=== PATIENT | female | born 1935 | race Caucasian/White ===

== ENCOUNTER → 2017-09-06 | Outpatient (CLI) | payer MEDICARE, MEDICAID | END | disposition home or self-care (01) | LOC: CFH 14:15 | PROVIDERS: ATTEND Internal Medicine Cardiovascular Disease | DX: I08.3 Combined rheumatic disorders of mitral, aortic and tricuspid valves (principal); Z87.891 Personal history of nicotine dependence | CPT/HCPCS: 93306 ==

== ENCOUNTER 2017-10-01 05:47 | Inpatient (IN) | payer MEDICARE, MEDICAID ==
[~2017-10-01] VITALS: Ht 165.1 cm; Wt 52.6 kg
[2017-10-01] MEDS ORDERED: FAMOTIDINE 20 MG/2 ML ONE (06:25)
[2017-10-01] MEDS ORDERED: ONDANSETRON 2MG/ML, 2ML ONE (06:26)
[2017-10-01] MEDS ORDERED: morphine SULFATE 10 MG/ML, 1ML ONE (06:26)
[2017-10-01] MEDS ORDERED: SODIUM CHLORIDE 0.9% 1,000ML IVBOLUS ONE (06:30)
[2017-10-01] MEDS ORDERED: SODIUM CHLORIDE FLUSH 10ML SYR IVF ONE (06:30)
[2017-10-01] MEDS ORDERED: ONDANSETRON 2MG/ML, 2ML IVPush ONE (06:30)
[2017-10-01] MEDS: MORPHINE SULFATE 4 MG/ML, 1ML IVPush PRN ×2 (06:37→09:30)
[2017-10-01 06:42] LABS: HEMATOCRIT 37.8 % (34.6-47.8); HEMOGLOBIN 12.9 g/dL (11.7-16.4); WHITE BLOOD COUNT 11.3 x10^3/uL (3.4-10)
[2017-10-01 06:55] LABS: ASPARTATE AMINO TRANSFERASE 20 U/L (15-37); BLOOD UREA NITROGEN 12 mg/dL (7-18)
[2017-10-01] MEDS ORDERED: OMNIPAQUE 350 MG/ML, 100ML BOTTLE ONE (07:30)
[2017-10-01] MEDS: SODIUM CHLORIDE 0.9% 1,000 ML IV SCH (12:46)
[2017-10-01] MEDS ORDERED: hydrALAzine 20 MG/ML, 1ML IVPush PRN (13:00)
[2017-10-01] MEDS ORDERED: ACETAMINOPHEN 325 MG TABLET PO PRN (13:00)
[2017-10-01] MEDS ORDERED: ENALAPRILAT 1.25 MG/ML, 2ML IVPush PRN (13:00)
[2017-10-01] MEDS: FLUTICASONE/VILANTEROL 100-25MCG/INH INH SCH (13:00)
[2017-10-01] MEDS ORDERED: LABETALOL 5MG/ML, 20ML IVPush PRN (13:00)
[2017-10-01] MEDS ORDERED: morphine SULFATE 10 MG/ML, 1ML IVPush PRN (13:00)
[2017-10-01] MEDS ORDERED: BISACODYL 10 MG SUPP PR PRN (13:00)
[2017-10-01] MEDS: CEFTRIAXONE PMX 1GM/50ML 50 ML IV SCH (13:00)
[2017-10-01] MEDS ORDERED: ONDANSETRON 2MG/ML, 2ML IVPush PRN (13:00)
[2017-10-01] MEDS ORDERED: POLYETHYLENE GLYCOL 17 GM PACKET PO PRN (13:00)
[2017-10-01] MEDS ORDERED: CEFTRIAXONE PMX 1GM/50ML 50 ML ONE (13:56)
[2017-10-01] MEDS ORDERED: HEPARIN 5,000 UNITS/ML, 1ML ONE (14:30)
[2017-10-01] MEDS: GABAPENTIN 300 MG CAPSULE PO SCH ×3 (14:35→21:00)
[2017-10-01] MEDS: HEPARIN 5,000 UNITS/ML, 1ML SQ SCH ×2 (14:35→21:00)
[2017-10-01] MEDS: SENNA/DOCUSATE TABLET PO SCH (14:36)
[2017-10-01] MEDS: METHOCARBAMOL 500 MG TABLET PO SCH ×3 (15:24→21:00)
[2017-10-01 16:06] VITALS: BP 102/59
[2017-10-01] MEDS: RIVAROXABAN 15 MG TABLET PO SCH (17:33)
[2017-10-01 19:25] VITALS: BP 106/64
[2017-10-01] MEDS ORDERED: DIPHENHYDRAMINE 25 MG CAPSULE PO ONE (22:00)
[2017-10-02 01:38] VITALS: BP 102/60
[2017-10-02 01:48] VITALS: BP 132/74
[2017-10-02] MEDS: HEPARIN 5,000 UNITS/ML, 1ML SQ SCH ×4 (05:00→22:12)
[2017-10-02 05:50] LABS: HEMATOCRIT 34.3 % (34.6-47.8); HEMOGLOBIN 11.6 g/dL (11.7-16.4); WHITE BLOOD COUNT 10.2 x10^3/uL (3.4-10)
[2017-10-02 06:12] LABS: ASPARTATE AMINO TRANSFERASE 17 U/L (15-37); BLOOD UREA NITROGEN 10 mg/dL (7-18)
[2017-10-02] MEDS: ASPIRIN 81 MG TABLET EC PO SCH (06:24)
[2017-10-02] MEDS: SODIUM CHLORIDE 0.9% 1,000 ML IV SCH (06:24)
[2017-10-02 07:40] VITALS: BP 92/50
[2017-10-02] MEDS: METHOCARBAMOL 500 MG TABLET PO SCH ×3 (08:51→22:11)
[2017-10-02] MEDS: GABAPENTIN 300 MG CAPSULE PO SCH ×3 (08:51→22:11)
[2017-10-02] MEDS: SENNA/DOCUSATE TABLET PO SCH (08:51)
[2017-10-02] MEDS: PANTOPROZOLE 40MG TABLET PO SCH (08:51)
[2017-10-02] MEDS: FLUTICASONE/VILANTEROL 100-25MCG/INH INH SCH (08:51)
[2017-10-02] MEDS: CEFTRIAXONE PMX 1GM/50ML 50 ML IV SCH (13:03)
[2017-10-02 15:45] VITALS: BP 104/55
[2017-10-02] MEDS: RIVAROXABAN 15 MG TABLET PO SCH (16:34)
[2017-10-02 19:20] VITALS: BP 117/49
[2017-10-03 01:10] VITALS: BP 110/54
[2017-10-03] MEDS: ASPIRIN 81 MG TABLET EC PO SCH (06:16)
[2017-10-03] MEDS: HEPARIN 5,000 UNITS/ML, 1ML SQ SCH ×3 (06:17→21:03)
[2017-10-03 08:05] VITALS: BP 124/75
[2017-10-03] MEDS: METHOCARBAMOL 500 MG TABLET PO SCH ×3 (10:41→21:02)
[2017-10-03] MEDS: FLUTICASONE/VILANTEROL 100-25MCG/INH INH SCH (10:42)
[2017-10-03] MEDS: PANTOPROZOLE 40MG TABLET PO SCH (10:42)
[2017-10-03] MEDS: GABAPENTIN 300 MG CAPSULE PO SCH ×3 (10:42→21:02)
[2017-10-03] MEDS: SENNA/DOCUSATE TABLET PO SCH (10:43)
[2017-10-03] MEDS: CEFTRIAXONE PMX 1GM/50ML 50 ML IV SCH (13:54)
[2017-10-03 14:49] VITALS: BP 92/50
[2017-10-03] MEDS: RIVAROXABAN 15 MG TABLET PO SCH (18:40)
[2017-10-03 19:30] VITALS: BP 116/57
[2017-10-04 01:59] VITALS: BP 110/54
[2017-10-04] MEDS: HEPARIN 5,000 UNITS/ML, 1ML SQ SCH ×3 (05:24→20:31)
[2017-10-04] MEDS: ASPIRIN 81 MG TABLET EC PO SCH (05:24)
[2017-10-04 07:51] VITALS: BP 110/75
[2017-10-04] MEDS: PANTOPROZOLE 40MG TABLET PO SCH (08:02)
[2017-10-04] MEDS: FLUTICASONE/VILANTEROL 100-25MCG/INH INH SCH (09:06)
[2017-10-04] MEDS: GABAPENTIN 300 MG CAPSULE PO SCH ×3 (09:06→20:35)
[2017-10-04] MEDS: SENNA/DOCUSATE TABLET PO SCH (09:06)
[2017-10-04] MEDS: METHOCARBAMOL 500 MG TABLET PO SCH ×3 (09:06→20:35)
[2017-10-04 13:46] VITALS: BP 106/68
[2017-10-04] MEDS: CEFTRIAXONE PMX 1GM/50ML 50 ML IV SCH (15:50)
[2017-10-04] MEDS: RIVAROXABAN 15 MG TABLET PO SCH (17:57)
[2017-10-04 22:30] VITALS: BP 139/79
[2017-10-05 00:38] VITALS: BP 146/68
[2017-10-05] MEDS: ASPIRIN 81 MG TABLET EC PO SCH (05:13)
[2017-10-05] MEDS: HEPARIN 5,000 UNITS/ML, 1ML SQ SCH ×2 (05:13→13:00)
[2017-10-05 07:42] VITALS: BP 117/74
[2017-10-05] MEDS: FLUTICASONE/VILANTEROL 100-25MCG/INH INH SCH (08:43)
[2017-10-05] MEDS: GABAPENTIN 300 MG CAPSULE PO SCH ×2 (08:43→17:24)
[2017-10-05] MEDS: METHOCARBAMOL 500 MG TABLET PO SCH ×2 (08:44→17:24)
[2017-10-05] MEDS: PANTOPROZOLE 40MG TABLET PO SCH (08:44)
[2017-10-05] MEDS: SENNA/DOCUSATE TABLET PO SCH (08:44)
[2017-10-05] MEDS: CEFTRIAXONE PMX 1GM/50ML 50 ML IV SCH (13:00)
[2017-10-05] MEDS ORDERED: ACET325T14 PO (14:51)
[2017-10-05] MEDS ORDERED: ASPI-621 PO (14:51)
[2017-10-05] MEDS ORDERED: METH500T7 PO (14:51)
[2017-10-05] MEDS ORDERED: PANT40TA5 PO (14:51)
[2017-10-05] MEDS ORDERED: GABA300C10 PO (14:51)
[2017-10-05] MEDS ORDERED: FLUT1AER INH (14:51)
[2017-10-05] MEDS ORDERED: TRAM50TA2 PO (14:51)
[2017-10-05] MEDS ORDERED: RIVA15TA PO (14:51)
[2017-10-05] MEDS ORDERED: SENN1TAB7 PO (14:51)
[2017-10-05] MEDS ORDERED: HYDR-3241 PO (14:51)
[2017-10-05] MEDS ORDERED: BISA10SU65 PR (14:51)
[2017-10-05] MEDS ORDERED: POLY17PO5 PO (14:51)
[2017-10-05] MEDS ORDERED: FLU VACC QS2017-18 (36MOS+) UP/PF 0.5 ML IM-VACC ONE (16:30)
[2017-10-05] MEDS ORDERED: PNEUMOCOCCAL 23 VACCINE IM-VACC ONE (16:30)
[2017-10-05] MEDS: RIVAROXABAN 15 MG TABLET PO SCH (17:24)
== END 2017-10-05 17:52 | DRG 551 ==
LOC: ED 07:41 → EDIP 08:21 → 3NE 15:42
PROVIDERS: ADMIT Internal Medicine; ATTEND Internal Medicine
DX: M50.10 Cervical disc disorder with radiculopathy, unspecified cervical region (principal); E43 Unspecified severe protein-calorie malnutrition; J44.9 Chronic obstructive pulmonary disease, unspecified; I34.0 Nonrheumatic mitral (valve) insufficiency; N39.0 Urinary tract infection, site not specified; Z68.1 Body mass index [BMI] 19.9 or less, adult; R53.81 Other malaise; E78.5 Hyperlipidemia, unspecified; K21.9 Gastro-esophageal reflux disease without esophagitis; M47.812 Spondylosis without myelopathy or radiculopathy, cervical region; I10 Essential (primary) hypertension; I70.0 Atherosclerosis of aorta; K59.00 Constipation, unspecified; M54.5 Low back pain; M19.90 Unspecified osteoarthritis, unspecified site; M48.02 Spinal stenosis, cervical region; N81.10 Cystocele, unspecified; R32 Unspecified urinary incontinence; Z79.01 Long term (current) use of anticoagulants; Z87.891 Personal history of nicotine dependence; Z23 Encounter for immunization
CPT/HCPCS: 36415; 71010; 72126; 74020; 80053; 80061; 81001; 82306; 82607; 83036; 83605; 83735; 84439; 84443; 85025; 87040; 87086; 90686; 90732; 96361; 96374; 96375; 96376; J0696; J1644; J2405; Q9967; J7030; Q0163

== ENCOUNTER → 2018-06-11 | Outpatient (CLI) | payer MEDICARE ==
[~2018-06-11] MED LIST: ACET325T14 PO; ASPI-621 PO; BISA10SU65 PR; FLUT1AER INH; GABA300C10 PO; HYDR-3241 PO; METH500T7 PO; PANT40TA5 PO; POLY17PO5 PO; RIVA15TA PO; SENN1TAB7 PO; TRAM50TA2 PO
== END | disposition home or self-care (01) ==
LOC: CFH 09:44
PROVIDERS: ATTEND Nurse Practitioner Family
DX: M81.0 Age-related osteoporosis without current pathological fracture (principal); Z86.718 Personal history of other venous thrombosis and embolism
CPT/HCPCS: 77080

== ENCOUNTER → 2018-12-14 | Outpatient (CLI) | payer MEDICARE ==
[~2018-12-14] MED LIST changes: -ASPI-621 PO; +ASPI81TA45 PO; -SENN1TAB7 PO; +SENN1TAB8 PO
== END | disposition home or self-care (01) ==
LOC: CFH 10:58
PROVIDERS: ATTEND Internal Medicine Gastroenterology
DX: R63.4 Abnormal weight loss (principal); K22.70 Barrett's esophagus without dysplasia; R11.0 Nausea
CPT/HCPCS: 84443

== ENCOUNTER 2019-02-16 18:02 | Inpatient (IN) | payer MEDICARE ==
[~2019-02-16] VITALS: Ht 165.1 cm; Wt 60.0 kg
[~2019-02-16 18:02] MED LIST changes: +SENN-177 PO; -SENN1TAB8 PO
--- NOTE | 2019-02-16 18:12 | NUR ---
EKG IN TRIAGE.
--- NOTE | 2019-02-16 18:20 | NUR ---
DR CORRAL TO TRIAGE TO ASSESS PT.
[2019-02-16] MEDS ORDERED: SODIUM CHLORIDE 0.9% 1,000ML IVBOLUS ONE (18:30)
--- NOTE | 2019-02-16 18:44 | NUR ---
report received from IAN Varela pt in [place] at this time.
--- NOTE | 2019-02-16 18:50 | NUR ---
pt presents to ED with c/o dizziness and slurred speech, onset today, time unclear. pt is a&ox4, face symmetrical, pupils equal, round and reactive. all extremity strength 5/5, gait steady, equal grasp bilaterally, no drift. symptomology discussed with LINDA Mcgregor, per LINDA, pt is not a code neuro as she does not have any deficits and has unclear symptom onset time.
[2019-02-16 18:55] LABS: BASOPHILS # (AUTO) 0.02 x10^3/uL (0-0.1); BASOPHILS % (AUTO) 0 % (0-1); EOSINOPHILS # (AUTO) 0.06 x10^3/uL (0-0.4); EOSINOPHILS % (AUTO) 1 % (1-7); LYMPHOCYTES # (AUTO) 2.08 x10^3/uL (1-3.4); LYMPHOCYTES % (AUTO) 27 % (22-44); MD NO; MEAN CORPUSCULAR HEMOGLOBIN 33.4 pg (27.0-34.8); MEAN CORPUSCULAR VOLUME 98.2 fL (80-100); MEAN PLATELET VOLUME 8.5 fL (7.4-10.4); MONOCYTES # (AUTO) 0.71 x10^3/uL (0.2-0.8); MONOCYTES % (AUTO) 9 % (2-9); NEUTROPHILS # (AUTO) 4.87 x10^3/uL (1.8-6.8); NEUTROPHILS % (AUTO) 63 % (42-75); PLATELET COUNT 162 x10^3/uL (130-400); RED BLOOD COUNT 4.75 x10^6/uL (3.82-5.3); RED CELL DISTRIBUTION WIDTH 12.2 % (9.6-15.2)
[2019-02-16 19:05] LABS: INTERNATIONAL NORMALIZED RATIO 1.1 (0.93-1.1); PROTHROMBIN TIME 11.5 Seconds (9.6-11.5)
[2019-02-16 19:07] LABS: ALANINE AMINOTRANSFERASE 49 U/L (12-78); ALBUMIN 3.9 g/dL (3.4-5.0); ANION GAP 6 mmol/L (5-15); CALCIUM 9.5 mg/dL (8.5-10.1); CHLORIDE 108 mmol/L (98-107); CREATININE 0.72 mg/dL (0.55-1.02)
[2019-02-16 19:11] LABS: ALKALINE PHOSPHATASE 116 U/L (45-117); BILIRUBIN,TOTAL 0.8 mg/dL (0.2-1.0); TROPONIN I < 0.015 ng/mL (0.000-0.045)
--- NOTE | 2019-02-16 19:11 | NUR ---
pt up to bathroom to void, gait steady. pt back to bed, all monitors in place. 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 urine sent to lab.
[2019-02-16 19:14] LABS: MICROSCOPIC NOT IND
[2019-02-16 19:17] LABS: CULTURE INDICATED? NO
--- NOTE | 2019-02-16 19:25 | NUR ---
EDMD Balbir at bedside to update pt and family with results and POC.
[2019-02-16] MEDS ORDERED: HYDR-3652 PO (19:41)
[2019-02-16] MEDS ORDERED: MULT-516 PO (19:41)
[2019-02-16] MEDS ORDERED: OMEP-110 PO (19:41)
[2019-02-16] MEDS ORDERED: TIZA4CAP PO (19:41)
[2019-02-16] MEDS ORDERED: CICL34.6 TP (19:41)
[2019-02-16] MEDS ORDERED: ATOR-2 PO (19:41)
[2019-02-16] MEDS ORDERED: ZOLP-413 PO (19:41)
[2019-02-16] MEDS ORDERED: metoprolol PO (19:41)
[2019-02-16] MEDS ORDERED: calcium + D PO (19:41)
--- NOTE | 2019-02-16 20:24 | NUR ---
report given to IAN Montoya, pt awaiting transport to [facility]
[2019-02-16] MEDS ORDERED: ASPIRIN 81 MG TABLET CHEW ONE (20:25)
[2019-02-16] MEDS ORDERED: ACETAMINOPHEN 650 MG/20.3 ML UDC PO PRN (20:30)
[2019-02-16] MEDS ORDERED: ONDANSETRON 4 MG TABLET PO PRN (20:30)
[2019-02-16] MEDS ORDERED: POLYETHYLENE GLYCOL 17 GM PACKET PO PRN (20:30)
[2019-02-16] MEDS ORDERED: BISACODYL 10 MG SUPP PR PRN (20:30)
[2019-02-16] MEDS ORDERED: ASPIRIN 81 MG TABLET CHEW PO ONE (20:30)
[2019-02-16] MEDS ORDERED: TIZANIDINE 4MG TABLET PO PRN (20:30)
[2019-02-16] MEDS ORDERED: DOCUSATE 100 MG CAPSULE PO PRN (20:30)
[2019-02-16] MEDS ORDERED: ENALAPRILAT 1.25 MG/ML, 2ML IV PRN (20:30)
--- NOTE | 2019-02-16 20:30 | NUR ---
PT A&OX4, NEURO INTACT. NO DRIFT. 5/5 STRENGTH TO ALL EXTREMITIES. FACE SYMMETRICAL. EQUAL GRASP BILATERALLY. PUPILS EQUAL ROUND AND REACTIVE. 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 VSS.
--- NOTE | 2019-02-16 20:46 | NUR ---
PT CONCERNED SHE HAS NOT HAD HER DOSE OF METOPROLOL AND XARALTO TODAY. PT UNABLE TO RECALL IF SHE TAKES SHORT ACTING OR LONG ACTING METOPROLOL. TRIP RAMIREZ NOTIFIED. TRIP ORDERED ONE TIME DOSE METOPROLOL TARTRATE 50 MG PO AND XARALTO 15 MG PO TO BE GIVEN THIS PM. TRIP AT BEDSIDE DISCUSSING PLAN OF CARE WITH PT AND FAMILY.
--- NOTE | 2019-02-16 20:50 | NUR ---
PT TRANSPORTED TO [facility], FAMILY ACCOMPANYING. NADN AT TRANSPORT.
[2019-02-16] MEDS ORDERED: RIVAROXABAN 15 MG TABLET PO ONE (21:00)
[2019-02-16] MEDS ORDERED: METOPROLOL TARTRATE 50 MG TABLET PO SCH (21:00)
[2019-02-16 21:02] VITALS: BP 124/69
[2019-02-16] MEDS: ATORVASTATIN 80 MG TABLET PO SCH (21:59)
[2019-02-16 23:17] VITALS: BP 109/65
[2019-02-17 01:34] VITALS: BP 145/80
[2019-02-17 04:53] LABS: BASOPHILS # (AUTO) 0.03 x10^3/uL (0-0.1); BASOPHILS % (AUTO) 1 % (0-1); EOSINOPHILS # (AUTO) 0.09 x10^3/uL (0-0.4); EOSINOPHILS % (AUTO) 1 % (1-7); LYMPHOCYTES # (AUTO) 2.07 x10^3/uL (1-3.4); LYMPHOCYTES % (AUTO) 32 % (22-44); MD NO; MEAN CORPUSCULAR HEMOGLOBIN 32.7 pg (27.0-34.8); MEAN CORPUSCULAR HGB CONC 33.1 g/dL (32.4-35.8); MEAN CORPUSCULAR VOLUME 98.9 fL (80-100); MEAN PLATELET VOLUME 9.1 fL (7.4-10.4); MONOCYTES # (AUTO) 0.79 x10^3/uL (0.2-0.8); MONOCYTES % (AUTO) 12 % (2-9); NEUTROPHILS # (AUTO) 3.45 x10^3/uL (1.8-6.8); NEUTROPHILS % (AUTO) 54 % (42-75); PLATELET COUNT 159 x10^3/uL (130-400); RED BLOOD COUNT 4.71 x10^6/uL (3.82-5.3); RED CELL DISTRIBUTION WIDTH 12.2 % (9.6-15.2)
[2019-02-17 05:02] LABS: ALANINE AMINOTRANSFERASE 46 U/L (12-78); ALBUMIN 3.6 g/dL (3.4-5.0); ANION GAP 7 mmol/L (5-15); CALCIUM 9.1 mg/dL (8.5-10.1); CHLORIDE 115 mmol/L (98-107); CHOLESTEROL, TOTAL 129 mg/dL (140-239); TRIGLYCERIDES 74 mg/dL (50-200); VLDL CHOLESTEROL 15 mg/dL (0-25)
[2019-02-17 05:03] LABS: ALKALINE PHOSPHATASE 108 U/L (45-117); HDL CHOLESTEROL (DIRECT) 63 mg/dL (40-60); TOTAL PROTEIN 6.8 g/dL (6.4-8.2)
[2019-02-17] MEDS: ASPIRIN 81 MG TABLET EC PO SCH (05:45)
[2019-02-17 06:12] LABS: HDL CHOL % 49 % (28-40); LDL CHOLESTEROL,CALCULATED 51 mg/dL (54-169); LDL/HDL RATIO 0.8 (0.5-3.0)
[2019-02-17 07:13] VITALS: BP 155/80
[2019-02-17] MEDS: HYDROcodone/APAP 5/325 TABLET PO PRN ×2 (07:56→20:22)
[2019-02-17] MEDS ORDERED: OMNIPAQUE 350 MG/ML, 100ML BOTTLE ONE (08:47)
[2019-02-17] MEDS: METOPROLOL SUCCINATE 50 MG TAB.ER.24H PO SCH (09:27)
[2019-02-17] MEDS: MULTIVITAMIN 1 TABLET PO SCH (09:27)
[2019-02-17] MEDS: OMEPRAZOLE 20 MG CAPSULE.DR PO SCH (09:27)
[2019-02-17] MEDS ORDERED: HEPARIN wt. based STROKE protocol IV PRN (13:00)
[2019-02-17] MEDS ORDERED: DO NOT GIVE XX PRN (13:00)
[2019-02-17 13:05] VITALS: BP 129/63
[2019-02-17 14:10] VITALS: BP 164/94
[2019-02-17] MEDS: HEPARIN 25,000 UNITS/500ML PMX 500 ML IV PRN (16:48)
[2019-02-17] MEDS ORDERED: RIVAROXABAN 15 MG TABLET PO SCH (17:00)
[2019-02-17 19:27] VITALS: BP 151/75
[2019-02-17] MEDS: DIPHENHYDRAMINE 25 MG CAPSULE PO PRN (20:22)
[2019-02-17] MEDS: ATORVASTATIN 80 MG TABLET PO SCH (20:22)
[2019-02-18 01:46] VITALS: BP 135/74
[2019-02-18] MEDS: HYDROcodone/APAP 5/325 TABLET PO PRN ×3 (04:40→20:10)
[2019-02-18] MEDS: ASPIRIN 81 MG TABLET EC PO SCH (04:40)
[2019-02-18 07:52] VITALS: BP 148/80
[2019-02-18] MEDS: OMEPRAZOLE 20 MG CAPSULE.DR PO SCH (08:07)
[2019-02-18] MEDS: METOPROLOL SUCCINATE 50 MG TAB.ER.24H PO SCH (08:08)
[2019-02-18] MEDS: MULTIVITAMIN 1 TABLET PO SCH (08:08)
[2019-02-18 12:56] VITALS: BP 114/78
[2019-02-18 15:11] LABS: TROPONIN I < 0.015 ng/mL (0.000-0.045)
[2019-02-18 20:09] VITALS: BP 116/65
[2019-02-18] MEDS: DIPHENHYDRAMINE 25 MG CAPSULE PO PRN (20:10)
[2019-02-18] MEDS: ATORVASTATIN 80 MG TABLET PO SCH (20:10)
[2019-02-18] MEDS: HEPARIN 25,000 UNITS/500ML PMX 500 ML IV PRN (21:00)
[2019-02-19 00:48] VITALS: BP 107/65
[2019-02-19] MEDS: ASPIRIN 81 MG TABLET EC PO SCH (04:50)
[2019-02-19 07:13] VITALS: BP 114/67
[2019-02-19] MEDS: HYDROcodone/APAP 5/325 TABLET PO PRN ×2 (07:30→20:57)
[2019-02-19] MEDS ORDERED: REGADENOSON 0.4 MG/5 ML SYRINGE ONE (08:35)
[2019-02-19] MEDS: OMEPRAZOLE 20 MG CAPSULE.DR PO SCH (11:39)
[2019-02-19] MEDS: METOPROLOL SUCCINATE 50 MG TAB.ER.24H PO SCH (11:39)
[2019-02-19] MEDS: MULTIVITAMIN 1 TABLET PO SCH (11:39)
[2019-02-19 12:19] VITALS: BP 136/75
[2019-02-19 19:53] VITALS: BP 134/74
[2019-02-19] MEDS: DIPHENHYDRAMINE 25 MG CAPSULE PO PRN (20:57)
[2019-02-19] MEDS: ATORVASTATIN 80 MG TABLET PO SCH (20:57)
[2019-02-20 01:33] VITALS: BP 115/72
[2019-02-20] MEDS: ASPIRIN 81 MG TABLET EC PO SCH (04:55)
[2019-02-20] MEDS: HEPARIN 25,000 UNITS/500ML PMX 500 ML IV PRN (05:42)
[2019-02-20] MEDS: HYDROcodone/APAP 5/325 TABLET PO PRN (06:10)
[2019-02-20 07:04] VITALS: BP 108/65
[2019-02-20] MEDS: MULTIVITAMIN 1 TABLET PO SCH (08:31)
[2019-02-20] MEDS: OMEPRAZOLE 20 MG CAPSULE.DR PO SCH (08:31)
[2019-02-20] MEDS: METOPROLOL SUCCINATE 50 MG TAB.ER.24H PO SCH (08:31)
[2019-02-20] MEDS ORDERED: PROTAMINE SULFATE 10 MG/ML, 5ML ONE (11:27)
[2019-02-20] MEDS ORDERED: HEPARIN 1,000 UNITS/ML, 10ML ONE (11:27)
[2019-02-20] MEDS ORDERED: BUPIVACAINE/EPI 0.5% 1:200K ONE (11:27)
[2019-02-20] MEDS ORDERED: PAPAVERINE 30 MG/ML, 2ML ONE (11:27)
[2019-02-20] MEDS ORDERED: THROMBIN 20,000 UNIT VIAL TP ONE (11:27)
[2019-02-20] MEDS ORDERED: BACITRACIN 50,000 UNIT ONE (11:28)
[2019-02-20] MEDS ORDERED: MICROFIBRILLAR COLLAGEN 1 GM TP ONE (11:28)
[2019-02-20] MEDS ORDERED: LIDOCAINE 1%, 20ML ONE (11:28)
[2019-02-20] MEDS ORDERED: FENTANYL PF 250 MCG/5ML ONE (11:43)
[2019-02-20 12:03] VITALS: BP 128/77
[2019-02-20] MEDS ORDERED: ONDANSETRON ODT 8 MG PO PRN (12:30)
[2019-02-20] MEDS ORDERED: FENTANYL PF 100 MCG/2ML IV PRN (12:30)
[2019-02-20] MEDS ORDERED: ACETAMINOPHEN 325 MG TABLET PO PRN (12:30)
[2019-02-20] MEDS ORDERED: PROMETHAZINE 25 MG/ML, 1ML IV PRN (12:30)
[2019-02-20] MEDS ORDERED: ONDANSETRON 2MG/ML, 2ML IV PRN (12:30)
[2019-02-20] MEDS ORDERED: HYDROmorphone 2 MG/ML, 1ML IVPush PRN (12:30)
[2019-02-20] MEDS ORDERED: ONDANSETRON 2MG/ML, 2ML ONE (12:35)
[2019-02-20] MEDS ORDERED: ROCURONIUM 10MG/ML,5ML ONE (12:35)
[2019-02-20] MEDS ORDERED: PROPOFOL 10 MG/ML, 20ML ONE (12:35)
[2019-02-20] MEDS ORDERED: DEXAMETHASONE 4 MG/ML, 1ML ONE (12:35)
[2019-02-20] MEDS ORDERED: CEFAZOLIN 1,000 MG ONE (12:35)
[2019-02-20] MEDS ORDERED: GLYCOPYRROLATE 0.2MG/1ML, 5ML ONE (12:35)
[2019-02-20] MEDS ORDERED: SUCCINYLCHOLINE 20 MG/ML, 10ML ONE (12:35)
[2019-02-20] MEDS ORDERED: NEOSTIGMINE 1 MG/ML, 10ML ONE (12:35)
[2019-02-20] MEDS ORDERED: FENTANYL PF 100 MCG/2ML ONE (14:11)
[2019-02-20] MEDS ORDERED: OXYcodone 5 MG/5 ML ORAL.SOL UDC ONE (14:11)
[2019-02-20] MEDS: OXYcodone 5 MG/5 ML ORAL.SOL UDC PO PRN ×2 (14:15→21:34)
[2019-02-20 20:00] VITALS: BP 125/65
[2019-02-20] MEDS: ATORVASTATIN 80 MG TABLET PO SCH (21:35)
[2019-02-20] MEDS: DIPHENHYDRAMINE 25 MG CAPSULE PO PRN (21:35)
[2019-02-21] MEDS: HYDROcodone/APAP 5/325 TABLET PO PRN ×3 (00:51→15:39)
[2019-02-21 00:59] VITALS: BP 152/75
[2019-02-21 06:03] LABS: BASOPHILS % (AUTO) 0 % (0-1); EOSINOPHILS % (AUTO) 0 % (1-7); LYMPHOCYTES # (AUTO) 0.72 x10^3/uL (1-3.4); LYMPHOCYTES % (AUTO) 8 % (22-44); MD NO; MEAN CORPUSCULAR HEMOGLOBIN 32.4 pg (27.0-34.8); MEAN CORPUSCULAR HGB CONC 33.1 g/dL (32.4-35.8); MEAN CORPUSCULAR VOLUME 98.1 fL (80-100); MEAN PLATELET VOLUME 8.9 fL (7.4-10.4); MONOCYTES # (AUTO) 0.37 x10^3/uL (0.2-0.8); MONOCYTES % (AUTO) 4 % (2-9); NEUTROPHILS # (AUTO) 8.28 x10^3/uL (1.8-6.8); NEUTROPHILS % (AUTO) 88 % (42-75); PLATELET COUNT 148 x10^3/uL (130-400); RED BLOOD COUNT 4.47 x10^6/uL (3.82-5.3); RED CELL DISTRIBUTION WIDTH 12.1 % (9.6-15.2)
[2019-02-21 06:07] LABS: ANION GAP 5 mmol/L (5-15); CALCIUM 9.2 mg/dL (8.5-10.1); CHLORIDE 109 mmol/L (98-107); CREATININE 0.51 mg/dL (0.55-1.02)
[2019-02-21] MEDS: ASPIRIN 81 MG TABLET EC PO SCH (06:22)
[2019-02-21] MEDS: OMEPRAZOLE 20 MG CAPSULE.DR PO SCH (08:52)
[2019-02-21] MEDS: MULTIVITAMIN 1 TABLET PO SCH (08:53)
[2019-02-21] MEDS: METOPROLOL SUCCINATE 50 MG TAB.ER.24H PO SCH (08:53)
[2019-02-21 08:55] VITALS: BP 136/72
[2019-02-21 13:00] VITALS: BP 116/70
[2019-02-21] MEDS ORDERED: IBUPROFEN 200 MG TABLET PO PRN (15:00)
[2019-02-21] MEDS ORDERED: POLY17PO5 PO (17:26)
[2019-02-22] MEDS ORDERED: RIVAROXABAN 15 MG TABLET PO SCH (17:00)
== END 2019-02-21 18:41 | disposition home or self-care (01) | DRG 37 ==
LOC: ED 18:58 → EDIP 19:51 → 4WST 20:55
PROVIDERS: ADMIT Internal Medicine; ATTEND Internal Medicine
PROC: 03HY32Z Insertion of Monitoring Device into Upper Artery, Percutaneous Approach (ICD-10-PCS; 2019-02-20)
PROC: 03CH0Z6 (ICD-10-PCS; 2019-02-20)
PROC: 03CK0Z6 (ICD-10-PCS; principal; 2019-02-20 13:00)
DX: I65.23 Occlusion and stenosis of bilateral carotid arteries (principal); I50.33 Acute on chronic diastolic (congestive) heart failure; D68.69 Other thrombophilia; I77.2 Rupture of artery; R47.01 Aphasia; F10.20 Alcohol dependence, uncomplicated; E16.2 Hypoglycemia, unspecified; E78.5 Hyperlipidemia, unspecified; I10 Essential (primary) hypertension; I48.91 Unspecified atrial fibrillation; I49.3 Ventricular premature depolarization; I73.9 Peripheral vascular disease, unspecified; Z86.73 Personal history of transient ischemic attack (TIA), and cerebral infarction without residual deficits; Z79.01 Long term (current) use of anticoagulants; Z79.82 Long term (current) use of aspirin; Z82.0 Family history of epilepsy and other diseases of the nervous system; Z83.3 Family history of diabetes mellitus; Z85.828 Personal history of other malignant neoplasm of skin; Z86.711 Personal history of pulmonary embolism; Z86.718 Personal history of other venous thrombosis and embolism; Z87.891 Personal history of nicotine dependence; Z91.040 Latex allergy status; Z90.49 Acquired absence of other specified parts of digestive tract; Z98.51 Tubal ligation status; I11.0 Hypertensive heart disease with heart failure
CPT/HCPCS: 36415; 70450; 70498; 70551; 71045; 78452; 80048; 80053; 80061; 81003; 83735; 84484; 85025; 85520; 85610; 85730; 93005; 93017; 93306; 93880; C1729; G0378; J0690; J1100; J1644; J2405; J2704; J2710; J2720; J2785; J3010; Q9967; A9502; C9898; J0330; J2440; J7030; Q0163

== ENCOUNTER → 2020-04-14 | Outpatient (CLI) | payer MEDICARE ==
[~2020-04-14] MED LIST changes: +ASPI81TA14 PO; +ATOR-2 PO; +CICL34.6 TP; +DULCOLAX PO; +HAIR, SKIN, NAILS PO; +HYDR-3237 PO; +HYDR-3652 PO; +MULT-516 PO; +OMEP-110 PO; +RIVA20TA PO; +TIZA4CAP PO; +ZOLP-413 PO; +calcium + D PO; +metoprolol PO
[2020-04-14 12:46] LABS: BASOPHILS # (AUTO) 0.02 x10^3/uL (0-0.1); BASOPHILS % (AUTO) 0 % (0-1); EOSINOPHILS # (AUTO) 0.11 x10^3/uL (0-0.4); EOSINOPHILS % (AUTO) 2 % (1-7); LYMPHOCYTES # (AUTO) 1.69 x10^3/uL (1-3.4); LYMPHOCYTES % (AUTO) 28 % (22-44); MD NO; MEAN CORPUSCULAR HEMOGLOBIN 33.1 pg (27.0-34.8); MEAN CORPUSCULAR HGB CONC 32.9 g/dL (32.4-35.8); MEAN CORPUSCULAR VOLUME 100.6 fL (80-100); MEAN PLATELET VOLUME 9.7 fL (7.4-10.4); MONOCYTES # (AUTO) 0.63 x10^3/uL (0.2-0.8); MONOCYTES % (AUTO) 10 % (2-9); NEUTROPHILS # (AUTO) 3.63 x10^3/uL (1.8-6.8); NEUTROPHILS % (AUTO) 60 % (42-75); PLATELET COUNT 170 x10^3/uL (130-400); RED BLOOD COUNT 4.45 x10^6/uL (3.82-5.3); RED CELL DISTRIBUTION WIDTH 12.1 % (9.6-15.2)
[2020-04-14 13:07] LABS: ALBUMIN 3.5 g/dL (3.4-5.0); ANION GAP 4 mmol/L (5-15); CALCIUM 9.5 mg/dL (8.5-10.1); CHLORIDE 108 mmol/L (98-107)
[2020-04-14 13:08] LABS: MICROSCOPIC INDICATED
[2020-04-14 13:16] LABS: ALANINE AMINOTRANSFERASE 40 U/L (12-78); ALKALINE PHOSPHATASE 93 U/L (45-117); BILIRUBIN,TOTAL 0.8 mg/dL (0.2-1.0); CHOL/HDL RATIO 2.4; CHOLESTEROL, TOTAL 146 mg/dL (140-239); FREE T4 (FREE THYROXINE) 1.04 ng/dL (0.76-1.46); HDL CHOL % 42 % (28-40); HDL CHOLESTEROL (DIRECT) 61 mg/dL (40-60); LDL CHOLESTEROL,CALCULATED 70 mg/dL (54-169); LDL/HDL RATIO 1.1 (0.5-3.0); TOTAL PROTEIN 7.1 g/dL (6.4-8.2); TRIGLYCERIDES 77 mg/dL (50-200); VLDL CHOLESTEROL 15 mg/dL (0-25)
== END | disposition home or self-care (01) ==
LOC: CFH 08:25
PROVIDERS: ATTEND Nurse Practitioner Family
DX: R10.84 Generalized abdominal pain (principal); I10 Essential (primary) hypertension; Z90.49 Acquired absence of other specified parts of digestive tract
CPT/HCPCS: 36415; 76700; 80053; 80061; 81001; 84439; 84443; 85025; 87086

== ENCOUNTER 2020-05-20 10:16 | Outpatient (CLI) | payer MEDICARE ==
[~2020-05-20 10:16] MED LIST changes: -PANT40TA5 PO; +PANT40TA6 PO
[2020-05-20] MEDS ORDERED: REGADENOSON 0.4 MG/5 ML SYRINGE ONE (12:10)
== END 2020-05-20 23:59 | disposition home or self-care (01) ==
LOC: CVU 10:16 → RAD 23:59
PROVIDERS: ATTEND Physician Assistant Medical
DX: I08.3 Combined rheumatic disorders of mitral, aortic and tricuspid valves (principal); I10 Essential (primary) hypertension
CPT/HCPCS: 78452; 93017; 93306; 93356; A9502; J2785

== ENCOUNTER → 2020-06-15 | Outpatient (CLI) | payer MEDICARE ==
[~2020-06-15] MED LIST changes: +PANT40TA5 PO; -PANT40TA6 PO
== END | disposition home or self-care (01) ==
LOC: CFH 12:30
PROVIDERS: ATTEND Physician Assistant Medical
DX: J44.9 Chronic obstructive pulmonary disease, unspecified (principal); I10 Essential (primary) hypertension; E78.2 Mixed hyperlipidemia; I26.99 Other pulmonary embolism without acute cor pulmonale; I34.0 Nonrheumatic mitral (valve) insufficiency; I73.9 Peripheral vascular disease, unspecified; Z79.01 Long term (current) use of anticoagulants
CPT/HCPCS: 71046

== ENCOUNTER → 2021-02-19 | Outpatient (CLI) | payer MEDICARE ==
[~2021-02-19] MED LIST changes: +HYDR-1067 PO; -HYDR-3652 PO; +METH-639 PO; -METH500T7 PO; -PANT40TA5 PO; +PANT40TA6 PO; +PROPOFOL 50 ML ONE
== END | disposition home or self-care (01) ==
LOC: CVU 12:03
PROVIDERS: ATTEND Internal Medicine Cardiovascular Disease
DX: I08.8 Other rheumatic multiple valve diseases (principal); I65.23 Occlusion and stenosis of bilateral carotid arteries; E78.5 Hyperlipidemia, unspecified; I10 Essential (primary) hypertension
CPT/HCPCS: 93306; 93356; 93880; J2704